=== PATIENT | female | born 1980 | race Caucasian/White ===

== ENCOUNTER 2017-08-16 01:05 | Inpatient (IN) | payer BC ==
[2017-08-16] MEDS ORDERED: EPSOM SALT 454 GM TP PRN (01:34)
[2017-08-16] MEDS ORDERED: OLIVE OIL 118 ML BTL MISC PRN (01:34)
[2017-08-16] MEDS ORDERED: OXYTOCIN 20 UNIT in LR 1,000 ML IV PRN (01:34)
[2017-08-16] MEDS ORDERED: TERBUTALINE SULFATE 1 MG/ML VIAL IV PRN (01:34)
[2017-08-16] MEDS ORDERED: LR 1,000 ML IV PRN (01:34)
[2017-08-16 02:09] LABS: % IMMATURE GRANULYOCYTES 0.9 % (0.0-1.1); ABSOLUTE IMMATURE GRANULOCYTES 0.09 10^3/uL (0.00-0.10); ADD DIFF? NO; ADD MORPH? NO; ADD SCAN? NO; ATYPICAL LYMPHOCYTE FLAG 10 (0-99); FRAGMENT RBC FLAG 0 (0-99); HEMATOCRIT 41.1 % (38.0-47.0); HEMOGLOBIN 14.3 g/dL (12.6-16.3); LEFT SHIFT FLG 0 (0-99); LIPEMIA HEMOLYSIS FLAG 90 (0-99); MEAN CELL HEMOGLOBIN 30.9 pg (27.9-34.1); MEAN CELL HEMOGLOBIN CONCENTR. 34.8 g/dL (32.4-36.7); MEAN CELL VOLUME 88.8 fL (81.5-99.8); PLATELET CLUMPS FLAG 0 (0-99); PLATELET COUNT 200 10^3/uL (150-400); RED BLOOD CELL COUNT 4.63 10^6/uL (4.18-5.33)
[2017-08-16] MEDS ORDERED: fentaNYL 2MCG/ML/BUP 0.1% RTU 100 ML BAG EP ONE (02:27)
[2017-08-16] MEDS ORDERED: fentaNYL 100 MCG/2 ML INJ ONE (02:27)
[2017-08-16] MEDS ORDERED: PHENYLEPHRINE HCL 100 MCG/ML SYR ONE (02:28)
[2017-08-16] MEDS ORDERED: BUPIVACAINE 0.25% 30 ML SDV ONE (02:28)
[2017-08-16 02:39] LABS: ALANINE AMINOTRANSFERASE 34 IU/L (9-52); ASPARTATE AMINOTRANSFERASE 28 IU/L (14-46); BILIRUBIN,TOTAL 0.4 mg/dL (0.1-1.4); BILIRUBIN-CONJUGATED 0.2 mg/dL (0.0-0.5); BILIRUBIN-UNCONJUGATED 0.2 mg/dL (0.0-1.1); CREATININE 0.7 mg/dL (0.6-1.0); GLOMERULAR FILTRATION RATE > 60; LACTATE DEHYDROGENASE 377 IU/L (313-618); URIC ACID 5.1 mg/dL (2.5-6.8)
[2017-08-16] MEDS ORDERED: PHENYLEPHRINE HCL 100 MCG/ML SYR IVP PRN (03:08)
[2017-08-16] MEDS ORDERED: ONDANSETRON 4 MG/2 ML VIAL IVP PRN (03:08)
--- NOTE | 2017-08-16 03:08 | PREANESOB ---
Obstetric Pre-Anesthesia Info - General Info Proposed Procedure: CSE - Info Status: Full Term Monitors: External FHR Pattern: Reassuring - Labor Status Cervical Dilation per last OB SVE: 3 PIH: No Magnesium Sulfate in Use: No Indications for Labor Analgesia: Pain Control Labor Epidural: Proposed Anesthesia Allergies/Adverse Reactions: Allergy/AdvReac Type Severity Reaction Status Date / Time No Known Allergies Allergy Verified 02/25/16 05:42 Home Medications: Medication Instructions Recorded Vit27&Calcium/Iron/FA 1 tab PO DAILY 02/10/14 [] [place] 3 500 Softgel 1 tab PO DAILY 06/05/16 Visit Medications: Generic Name Dose Route Start Last Admin Trade Name Freq PRN Reason Stop Dose Admin Lactated Ringer's 1,000 mls @ 0 mls/hr 08/16/17 01:34 Lr IV 08/17/17 01:33 PRN PRN SEE PROTOCOL CONDITIONS Protocol Per Protocol Oxytocin 20 unit/ Lactated 1,002 mls @ 150 mls/hr 08/16/17 01:34 Ringer's IV PRN PRN Post- bleeding Ibuprofen 600 mg 08/16/17 01:34 Motrin PO 02/12/18 01:33 Q6HRS PRN post , inflammation Magnesium Sulfate 454 gm 08/16/17 01:34 Epsom Salt TP 02/12/18 01:33 Q1H PRN perineal discomfort [place] Oil 118 ml 08/16/17 01:34 Sweet Oil MISC 02/12/18 01:33 ONCE PRN perineal massage Terbutaline Sulfate 0.25 mg 08/16/17 01:34 Brethine IV 02/12/18 01:33 ONCE PRN Tachysystole Discontinued Medications Generic Name Dose Route Start Last Admin Trade Name Freq PRN Reason Stop Dose Admin Bupivacaine HCl Confirm 08/16/17 02:28 Sensorcaine 0.25% Sdv Administered 08/16/17 02:29 Dose 30 ml .ROUTE .STK-MED ONE Fentanyl Confirm 08/16/17 02:27 Sublimaze Administered 08/16/17 02:28 Dose 100 mcg .ROUTE .STK-MED ONE Fentanyl/Bupivacaine HCl Confirm 08/16/17 02:27 Fentanyl/Bupivacaine/Ns 2 Mcg/Ml 0.1% (Premix Administered 08/16/17 02:28 Dose 100 ml EP .STK-MED ONE Phenylephrine HCl Confirm 08/16/17 02:28 Neosynephrine Administered 08/16/17 02:29 Dose 1,000 mcg .ROUTE .STK-MED ONE - Social History Substance Use/Abuse: Denies - Vital Signs Height/Weight (Nursing): Height 165.1 cm Weight 90.265 kg - Focused Exam Neck exam: FROM Mallampati Score: Class 2 Mouth exam: normal dental/mouth exam Pulmonary: no respiratory distress Cardiovascular: regular rate and rhythym Labs: 08/16/17 02:00 08/16/17 02:00 Patient ABO/Rh O POSITIVE 08/16/17 02:00 Uric Acid 5.1 mg/dL (2.5-6.8) 08/16/17 02:00 Total Bilirubin 0.4 mg/dL (0.1-1.4) 08/16/17 02:00 Conjugated Bilirubin 0.2 mg/dL (0.0-0.5) 08/16/17 02:00 Unconjugated Bilirubin 0.2 mg/dL (0.0-1.1) 08/16/17 02:00 AST 28 IU/L (14-46) 08/16/17 02:00 ALT 34 IU/L (9-52) 08/16/17 02:00 Lactate Dehydrogenase 377 IU/L (313-618) 08/16/17 02:00 - Plan Consent Signed and on Chart: Yes Patient/Guardian Understands and Agrees to Plan: Yes Urgent/Emergent Case: Mar [facility] completed preop but documented later for safe timely pt care
[2017-08-16] MEDS ORDERED: LR 500 ML IV SCH (03:30)
[2017-08-16] MEDS ORDERED: fentaNYL 2MCG/ML/BUP 0.1% RTU 100 ML EP SCH (03:30)
[2017-08-16] MEDS ORDERED: LIDOCAINE 1% 300 MG/30 ML SDV ONE (03:31)
[2017-08-16] MEDS ORDERED: AMMONIA AROMATIC 1 EACH AMP IH ONE (03:31)
[2017-08-16] MEDS ORDERED: OLIVE OIL 118 ML BTL ONE (03:31)
[2017-08-16] MEDS ORDERED: OXYTOCIN 10 UNIT/ML VIAL ONE (03:31)
[2017-08-16] MEDS ORDERED: TERBUTALINE SULFATE 1 MG/ML VIAL ONE (03:31)
[2017-08-16] MEDS ORDERED: MISOPROSTOL 200 MCG TAB ONE (03:32)
[2017-08-16] MEDS ORDERED: ACETAMINOPHEN 325 MG TAB PO PRN (05:02)
--- NOTE | 2017-08-16 05:07 | OBDEL ---
Info Type: Vaginal Presentation at Delivery: Vertex L&D Analgesia/Anesthesia Type: Epidural GBS+: No Indications for Delivery: Spontaneous Labor Vaginal Delivery - Delivery Provider Delivery Physician/CNM: Chloe Payne - Labor and Delivery Onset of Contractions Date: 08/15/17 Onset of Contractions Time: 22:30 Onset of Contractions Type: Spontaneous Rupture of Membranes Date: 08/15/17 Rupture of Membranes Time: 22:15 Rupture of Membranes Type: Spontaneous Amniotic Fluid Color: Clear Dilation Complete Date: 08/16/17 Dilation Complete Time: 03:25 Placenta Delivery Date: 08/16/17 Placenta Delivery Time: 04:16 Total Hours of Labor: 5 Laceration: 2nd Degree Repair: 3-0, Vicryl Vaginal Sponge Count Correct: Yes Vaginal Needle Count Correct: Yes Vaginal Sweep Performed: Yes EBL: 350 Delivery Events: None Delivery Comment: due to expected LGA, after head delivered the legs were flexed back and mild SP pressure given and no problem with shoulder delivery at all. - Medications Labor Augmentation/Induction Methods Used: None [place] Delivery Date: 08/16/17 Delivery Time: 04:07 SERENA: 08/26/17 Gestational Age: 38 week(s) and 4 day(s) Sex of : Female Score (1 Min): 8 Score (5 Min): 9 ICD10 Worksheet Patient Problems: Problems Problem Status Onset Normal spontaneous vaginal delivery Acute
[2017-08-16] MEDS: IBUPROFEN 600 MG TAB PO PRN ×4 (05:14→21:33)
[2017-08-16] MEDS: DOCUSATE SODIUM 100 MG CAP PO PRN (10:13)
[2017-08-16] MEDS: GUAIFENESIN/DM 10 ML UDCUP PO PRN ×3 (13:48→23:47)
[2017-08-16] MEDS: HYDROCODONE/APAP 5/325 TAB PO PRN ×2 (17:58→23:47)
[2017-08-17] MEDS: IBUPROFEN 600 MG TAB PO PRN ×4 (04:08→22:07)
[2017-08-17] MEDS: DOCUSATE SODIUM 100 MG CAP PO PRN ×2 (08:15→20:17)
[2017-08-17] MEDS: HYDROCODONE/APAP 5/325 TAB PO PRN ×2 (08:16→20:17)
--- NOTE | 2017-08-17 09:25 | OBPP ---
Progress Note Assessment/Plan: Assessment: Post day 1 Stable afebrile Wanting to be discharged home tomorror Plan: Routine care Discharge home tomorrow 08/17/17 09:21 08/17/17 09:26 Subjective/ Course: 08/17/17 09:27 Ambulating and tolerating diet. Continues to have mild pubic bone pain. Wants to stay another day Objective: 08/17/17 04:15 08/16/17 02:00 Patient ABO/Rh O POSITIVE 08/16/17 02:00 Uric Acid 5.1 mg/dL (2.5-6.8) 08/16/17 02:00 Total Bilirubin 0.4 mg/dL (0.1-1.4) 08/16/17 02:00 Conjugated Bilirubin 0.2 mg/dL (0.0-0.5) 08/16/17 02:00 Unconjugated Bilirubin 0.2 mg/dL (0.0-1.1) 08/16/17 02:00 AST 28 IU/L (14-46) 08/16/17 02:00 ALT 34 IU/L (9-52) 08/16/17 02:00 Lactate Dehydrogenase 377 IU/L (313-618) 08/16/17 02:00 Temp Pulse Resp BP Pulse Ox 36.2 C 72 16 125/84 H 95 08/17/17 08:00 08/17/17 08:00 08/17/17 08:00 08/17/17 08:00 08/17/17 08:00 Physical Exam - Physical Exam Respiratory: chest non-tender Cardiac/Chest: normal peripheral pulses Abdomen: normal bowel sounds, non-tender, soft Skin: normal color, warm/dry Neuro/Psych: no motor/sensory deficits, alert, normal mood/affect, oriented x 3
[2017-08-17] MEDS: GUAIFENESIN/DM 10 ML UDCUP PO PRN (16:17)
[2017-08-17 20:42] VITALS: RESP 18
[2017-08-18] MEDS: IBUPROFEN 600 MG TAB PO PRN (05:20)
[2017-08-18] MEDS: GUAIFENESIN/DM 10 ML UDCUP PO PRN (05:20)
--- NOTE | 2017-08-18 07:30 | OBPP ---
Progress Note Assessment/Plan: Assessment: Post day 2 Stable afebrile Wanting to be discharged home Plan: Routine care Discharge home Ibuprofen and stool softener 08/18/17 07:29 Subjective/ Course: 08/17/17 09:27 Ambulating and tolerating diet. Continues to have mild pubic bone pain. Wants to stay another day 08/18/17 07:40 Patient feeling better and ready for discharge home. Tolerating diet breast feeding well min lochia and flatus Objective: 08/17/17 04:15 08/16/17 02:00 Patient ABO/Rh O POSITIVE 08/16/17 02:00 Uric Acid 5.1 mg/dL (2.5-6.8) 08/16/17 02:00 Total Bilirubin 0.4 mg/dL (0.1-1.4) 08/16/17 02:00 Conjugated Bilirubin 0.2 mg/dL (0.0-0.5) 08/16/17 02:00 Unconjugated Bilirubin 0.2 mg/dL (0.0-1.1) 08/16/17 02:00 AST 28 IU/L (14-46) 08/16/17 02:00 ALT 34 IU/L (9-52) 08/16/17 02:00 Lactate Dehydrogenase 377 IU/L (313-618) 08/16/17 02:00 Temp Pulse Resp BP Pulse Ox 36.8 C 87 18 132/79 H 96 08/17/17 20:00 08/17/17 20:00 08/17/17 20:00 08/17/17 20:00 08/17/17 20:00 Uterine Position/Fundal Height: Umbilicus -2 Uterine Tone: Firm Physical Exam - Physical Exam Respiratory: chest non-tender Abdomen: normal bowel sounds, non-tender Extremities: normal range of motion, non-tender Skin: normal color, warm/dry Neuro/Psych: no motor/sensory deficits, alert, normal mood/affect, oriented x 3
--- NOTE | 2017-08-18 07:33 | OBGCSDC ---
General Delivery Information - General Info : 5 Para: 2 Abortions: 3 Type: Vaginal L&D Analgesia/Anesthesia Type: Epidural Admission Date: 08/16/17 Labs: Patient ABO/Rh O POSITIVE 08/16/17 02:00 Hct 37.0 % (38.0-47.0) L 08/17/17 04:15 - Hospital Course : 08/17/17 09:27 Ambulating and tolerating diet. Ready for discharge today 08/18/17 07:32 Vaginal - Delivery Provider Delivery Physician/CNM: Chloe Payne - Diagnosis Labor: Spontaneous Rupture of Membranes Type: Spontaneous Amniotic Fluid Color: Clear Laceration: 2nd Degree Repair: 3-0, Vicryl Delivery Events: None - Delivery EBL: 350 Data [place] Delivery Date: 08/16/17 Delivery Time: 04:07 SERENA: 08/26/17 Gestational Age: 38 week(s) and 6 day(s) Sex of Infant: Female [place] Weight (gm): 3702 kg Score (1 Min): 8 Score (5 Min): 9 Discharge Information - Discharge Information Prescriptions: Ibuprofen [Motrin (*)] 600 mg PO Q6HRS PRN #30 tab PRN Reason: post , inflammation Docusate Sodium [Colace 100 MG (*)] 100 mg PO BID PRN #30 cap PRN Reason: Constipation Condition: Good Instruction/Follow Up: Two Weeks
[2017-08-18] MEDS: DOCUSATE SODIUM 100 MG CAP PO PRN (07:58)
[2017-08-18 08:39] VITALS: BP 139/89; PULSE 75; TEMP 98; O2SAT 98
== END 2017-08-18 10:30 | disposition home or self-care (01) | DRG 775 ==
LOC: FLD 01:05 → FOB 09:21
PROVIDERS: ADMIT Obstetrics & Gynecology; ATTEND Obstetrics & Gynecology
DX: O70.1 Second degree perineal laceration during delivery (principal); Z3A.38 38 weeks gestation of pregnancy; Z37.0 Single live birth
CPT/HCPCS: J2370; J3010; J3105